=== PATIENT | female | born 1955 | race Caucasian/White ===

== ENCOUNTER 2018-12-23 13:12 | Emergency (ER) | payer OTHER ==
[2018-12-23 13:38] VITALS: TEMP 98
[2018-12-23 15:54] VITALS: BP 125/82; PULSE 62; RESP 18; O2SAT 99
--- NOTE | 2018-12-23 15:57 | C.PDOC ---
History Of Present Illness 63 year old female presents to the emergency department with complaints of 3 days of sore throat, nasal congestion, dry cough, but denies fever. Patient states that she was unable to be seen by Dr. Herrera. Patient complains that she is not able to tolerate PO fluids due to vomiting. Time Seen by Provider: 12/23/18 15:19 Chief Complaint (Nursing): GI Problem History Per: Patient History/Exam Limitations: no limitations Onset/Duration Of Symptoms: Days (3) Current Symptoms Are (Timing): Still Present Location Of Pain: Throat Associated Symptoms: Sore Throat, Cough, Nasal Congestion, Vomiting. denies: Fever Past Medical History Reviewed: Historical Data, Nursing Documentation, Vital Signs Vital Signs: Last Vital Signs Temp 98 F 12/23/18 15:52 Pulse 62 12/23/18 15:52 Resp 18 12/23/18 15:52 BP 125/82 12/23/18 15:52 Pulse Ox 99 12/23/18 15:52 - Medical History PMH: Hypercholesterolemia, Hypothyroidism Surgical History: No Surg Hx Family History: States: No Known Family Hx - Social History Hx Alcohol Use: No Hx Substance Use: No - Immunization History Hx Influenza Vaccination: No Hx Pneumococcal Vaccination: No Review Of Systems Except As Marked, All Systems Reviewed And Found Negative. Constitutional: Negative for: Fever ENT: Positive for: Nose Congestion, Throat Pain Respiratory: Positive for: Cough Gastrointestinal: Positive for: Vomiting. Negative for: Nausea, Abdominal Pain, Diarrhea Neurological: Negative for: Weakness, Numbness Physical Exam - Physical Exam Appears: Non-toxic, No Acute Distress Skin: Normal Color, Warm, Dry Head: Atraumatic, Normacephalic Eye(s): bilateral: Normal Inspection, PERRL, EOMI Ear(s): Bilateral: Normal Nose: Normal Oral Mucosa: Moist Throat: Normal, No Erythema Neck: Normal, Supple Chest: Symmetrical, No Tenderness Cardiovascular: Rhythm Regular, No Murmur Respiratory: Normal Breath Sounds, No Rales, No Rhonchi, No Wheezing Gastrointestinal/Abdominal: Soft, No Tenderness, No Guarding, No Rebound Extremity: Normal ROM Neurological/Psych: Oriented x3, Normal Speech, Normal Cognition ED Course And Treatment O2 Sat by Pulse Oximetry: 99 (RA) Pulse Ox Interpretation: Normal Medical Decision Making Medical Decision Making: Plan: EKG Pepcid 20mg PO Zofran 4mg PO Disposition Doctor Will See Patient In The: Office Counseled Patient/Family Regarding: Studies Performed, Diagnosis - Disposition Referrals: Jacki Herrera MD [Staff Provider] - Disposition: HOME/ ROUTINE Disposition Time: 15:30 Condition: GOOD Additional Instructions: Zofan ODT 4 mg (dissolves under tongue) 1 tablet every 8 hours as needed for nausea/vomiting Pepcid 20 mg (Lowers stomach acid) 1 tablet every 12 hours for 3 days excellent treatment for gastritis Follow-up with Dr. Herrera Call for an appt. Prescriptions: Ondansetron ODT [Zofran ODT] 4 mg PO Q6H PRN #6 odt PRN Reason: Nausea/Vomiting Instructions: Nausea and Vomiting, Adult (DC), Viral Syndrome (DC) Forms: [email or web address] (Sami) - Clinical Impression Clinical Impression: Viral syndrome, Vomiting - Scribe Statement The provider has reviewed the documentation as recorded by the Scribe (Walter Whitehead) Provider Attestation: All medical record entries made by the Scribe were at my direction and personally dictated by me. I have reviewed the chart and agree that the record accurately reflects my personal performance of the history, physical exam, medical decision making, and the department course for this patient. I have also personally directed, reviewed, and agree with the discharge instructions and disposition.
--- NOTE | 2018-12-25 22:49 | CARD ---
APPROVED REPORT Date of service: 12/23/2018 EKG Measurement Heart [id number] <Conclusion> Sinus bradycardia Otherwise normal ECG
== END 2018-12-23 15:54 | disposition home or self-care (01) ==
LOC: C.ER 13:12
DX: R11.10 Vomiting, unspecified (principal); B34.9 Viral infection, unspecified; E03.9 Hypothyroidism, unspecified; E78.00 Pure hypercholesterolemia, unspecified